=== PATIENT | male | born 1980 | race African-American/Black ===

== ENCOUNTER 2017-03-17 12:58 | Emergency (ER) | payer MEDICARE ==
--- NOTE | 2017-03-27 18:10 | ER ---
ADMIT: 03/17/2017 RM/LOC: ER [facility] MR#: [id number] [place], [place] [id number] [address] [place] [id number] Emergency Room Report SEX: M AGE: 36 : 1980 DATE: 03/17/2017 ADDENDUM: CHIEF COMPLAINT: Abdominal pain. HISTORY OF PRESENT ILLNESS: This is a 36-year-old male, who has vomited x2 with abdominal pain. There was a question of some blood in it. He has also has not had a BM for couple days. This patient was sent here from the [place], lab work was already done. I added a CT of the abdomen, there were no acute findings. Discharged home after giving Protonix 40 mg IV and a liter of fluids. I did offer him a second liter just to hydrate him, he did not want any fluids. I told him to continue push fluids today, do a bland diet. No NSAIDs. Take Carafate q.i.d. and [facility] to reche[facility]. The only real positive findings were that he was slightly dehydrated from the labs from the [place]. FINAL CLINICAL IMPRESSION: Gastritis versus peptic ulcer disease with an elevated creatinine. CAM Edwards / Román Fisher MD / denl JOB #: [id number] CC: Román Fisher MD, Attending Physician [facility] Phys[facility], Family Physician
== END 2017-03-17 15:05 | disposition home or self-care (01) ==
LOC: ER 12:58
DX: R10.9 Unspecified abdominal pain (principal); K92.0 Hematemesis; I10 Essential (primary) hypertension; Z91.013 Allergy to seafood